=== PATIENT | male | born 1960 | race African-American/Black ===

== ENCOUNTER 2020-03-27 22:04 | Inpatient (IN) | payer OTHER ==
[2020-03-27 23:16] LABS: BASO % 0.9 % (0-2.0); EOS % 0.4 % (0-4.5); HEMATOCRIT 50.3 % (35.4-49); HEMOGLOBIN 17.1 GM/dL (11.7-16.9); LYMPH % 19.3 % (8-40); MCH 29.4 pg (25.7-33.7); MEAN CELL VOLUME 86.5 fl (80-96); MEAN PLT VOLUME 9.5 fl (7.5-11.1); NEUT % 70.4 % (42.8-82.8); PLATELET COUNT 301 K/MM3 (134-434); RBC 5.82 M/mm3 (4.00-5.60); RDW 14.5 % (11.9-15.9); WHITE BLOOD COUNT 10.7 K/mm3 (4.0-10.0)
[2020-03-27 23:18] LABS: VENOUS BASE EXCESS -0.2 mmol/L (-2-2); VENOUS O2 SATURATION 88.8 % (70-80); VENOUS PCO2 36.1 mmHg (38-52); VENOUS PH 7.431 (7.310-7.410)
[2020-03-27 23:27] LABS: INR 1.19 (0.83-1.09); PROTHROMBIN TIME (PATIENT) 14.6 SEC (9.7-13.0)
[2020-03-27 23:29] LABS: ACTIVATED PTT 34.4 SECONDS (25.2-36.5)
[2020-03-27 23:34] LABS: CHLORIDE 100 mmol/L (98-107); POTASSIUM 3.1 mmol/L (3.5-5.1); SODIUM 139 mmol/L (136-145)
[2020-03-27 23:37] LABS: CALCIUM 9.4 mg/dL (8.5-10.1)
[2020-03-27 23:38] LABS: ALBUMIN 3.5 g/dl (3.4-5.0); ANION GAP 15 MMOL/L (8-16); BLOOD UREA NITROGEN 6.5 mg/dL (7-18); CO2 24 mmol/L (21-32); GLUCOSE,RANDOM 128 mg/dL (74-106)
[2020-03-27 23:40] LABS: BILIRUBIN,DIRECT 0.6 mg/dL (0.0-0.2)
[2020-03-27 23:41] LABS: CREATININE 0.7 mg/dL (0.55-1.3); SGOT/AST 79 U/L (15-37); SGPT/ALT 146 U/L (13-61)
[2020-03-27 23:42] LABS: BILIRUBIN,TOTAL 1.7 mg/dL (0.2-1); LDH 233 U/L (87-246)
[2020-03-27 23:43] LABS: ALK PHOS 284 U/L (45-117)
[2020-03-27 23:46] LABS: N-TERMINAL BNP 129.7 pg/ml (5-125)
[2020-03-27] MEDS ORDERED: ADENOSINE 6 MG/2 ML VIAL IVPUSH ONE (23:49)
[2020-03-28] MEDS ORDERED: SODIUM CHLORIDE 500 ML IV STA (00:01)
[2020-03-28] MEDS: KCL 10 MEQ IVPB 10 MEQ/100 ML INFUS.BAG IVPB SCH ×4 (01:01→02:57)
[2020-03-28 01:24] LABS: MAGNESIUM 1.8 mg/dL (1.8-2.4)
[2020-03-28] MEDS ORDERED: VANCOMYCIN 1,000 MG in DEXTROSE 5%-WATER - 250 ML IVPB ONE (02:13)
[2020-03-28] MEDS ORDERED: PIPERACILLIN/TAZOB 4.5 GM 4.5 GM in DEXTROSE 5%-WATER 100 ML IVPB ONE (02:13)
[2020-03-28 02:56] LABS: LIPASE 67 U/L (73-393)
[2020-03-28] MEDS ORDERED: PIPERACILLIN/TAZOB 4.5 GM 4.5 GM/100 ML BAG IVPB ONE (02:56)
[2020-03-28] MEDS ORDERED: VANCOMYCIN 1 GRAM (PRE-DOCKED) 1,000 MG/250 ML BAG IVPB ONE (02:56)
[2020-03-28] MEDS: SODIUM CHLORIDE 1,000 ML IV SCH ×2 (04:25→20:00)
[2020-03-28] MEDS ORDERED: DEXAMETHASONE SOD PHOSPHATE 20 MG/5 ML VIAL IVPB ONE (04:26)
[2020-03-28] MEDS ORDERED: DEXAMETHASONE SOD PHOSPHATE 10 MG/1 ML VIAL ONE (04:29)
[2020-03-28] MEDS: DEXAMETHASONE SOD PHOSPHATE 4 MG/1 ML VIAL IVPB SCH (04:35)
[2020-03-28 06:32] LABS: EPI CELLS 24 /uL (0-25.1); HYALINE CASTS 1 /uL (0-3.1); URINE APPEARANCE Clear; URINE BACTERIA 28 /uL (0-1359); URINE BILIRUBIN Negative (NEGATIVE); URINE COLOR Yellow; URINE GLUCOSE (UA) Negative (NEGATIVE); URINE KETONE 80 (NEGATIVE); URINE LEUK ESTERASE Negative (NEGATIVE); URINE NITRITE Negative (NEGATIVE); URINE PROTEIN Trace (NEGATIVE); URINE RBC 1324 /uL (0-23.9); URINE WBC 22 /uL (0-25.8)
[2020-03-28] MEDS ORDERED: ALBUTEROL SO4 2.5/IPRATROPIUM 0.5 INH SOL 3 ML VIAL.NEB. NEB PRN (10:07)
[2020-03-28] MEDS ORDERED: ALBUTEROL SO4 2.5/IPRATROPIUM 0.5 INH SOL 3 ML VIAL.NEB. NEB ONE (10:46)
[2020-03-28] MEDS ORDERED: ENOXAPARIN NA (PORCINE) 60 MG/0.6 ML DISP.SYRIN SQ ONE (10:47)
[2020-03-28] MEDS: ENOXAPARIN NA (PORCINE) 40 MG/0.4 ML DISP.SYRIN SQ SCH ×2 (10:50→21:34)
[2020-03-28] MEDS ORDERED: ALBUTEROL SO4 HFA INHALER IH PRN (11:11)
[2020-03-28] MEDS ORDERED: ACETAMINOPHEN 325 MG TABLET (FP) PO PRN (12:54)
[2020-03-28] MEDS ORDERED: REMDESIVIR 200 MG in SODIUM CHLORIDE 210 ML IVPB ONE (15:00)
[2020-03-28] MEDS ORDERED: cefTRIAXone SODIUM 1 GM VIAL ONE (16:23)
[2020-03-28] MEDS ORDERED: DEXTROSE 5%-WATER - 50 ML IVPB ONE (16:24)
[2020-03-28] MEDS: CEFTRIAXONE 1 GM in DEXTROSE 5%-WATER - 50 ML IVPB SCH (16:29)
[2020-03-28] MEDS ORDERED: amLODIPine BESYLATE 10 MG TABLET (FP) PO SCH (16:45)
[2020-03-28 17:25] VITALS: BMI 33.8
[2020-03-28] MEDS: ASPIRIN 81 MG CHEWABLE TABLETS PO SCH (17:51)
[2020-03-28] MEDS ORDERED: METOPROLOL TARTRATE 5 MG/5 ML VIAL IVPUSH ONE (18:00)
[2020-03-28] MEDS: LABETALOL HCL 5 MG/1 ML (100MG/20 ML VIAL) IVPUSH SCH ×2 (20:10→21:34)
[2020-03-28] MEDS ORDERED: METOPROLOL TARTRATE 5 MG/5 ML VIAL IVPUSH PRN ×2 (21:24→21:37)
[2020-03-28] MEDS ORDERED: ATORVASTATIN CA 80 MG TABLET (FP) PO SCH (22:00)
[2020-03-28] MEDS ORDERED: EZETIMIBE 10 MG TABLET (FP) PO SCH (22:00)
[2020-03-29] MEDS ORDERED: METOPROLOL TARTRATE 5 MG/5 ML VIAL IVPUSH ONE (05:20)
[2020-03-29] MEDS: DEXAMETHASONE SOD PHOSPHATE 4 MG/1 ML VIAL IVPB SCH ×2 (05:21→09:03)
[2020-03-29 08:03] LABS: HEMATOCRIT 49.6 % (35.4-49); HEMOGLOBIN 17.3 GM/dL (11.7-16.9); MCH 29.9 pg (25.7-33.7); MCHC 34.8 g/dl (32.0-35.9); MEAN PLT VOLUME 9.9 fl (7.5-11.1); PLATELET COUNT 290 K/MM3 (134-434); RBC 5.77 M/mm3 (4.00-5.60); RDW 14.8 % (11.9-15.9); WHITE BLOOD COUNT 17.2 K/mm3 (4.0-10.0)
[2020-03-29 08:40] LABS: POTASSIUM 3.4 mmol/L (3.5-5.1)
[2020-03-29 08:47] LABS: CALCIUM 9.8 mg/dL (8.5-10.1)
[2020-03-29] MEDS ORDERED: DEXTROSE 5%-WATER - 50 ML IVPB ONE (08:47)
[2020-03-29] MEDS ORDERED: cefTRIAXone SODIUM 1 GM VIAL ONE (08:47)
[2020-03-29 08:48] LABS: BLOOD UREA NITROGEN 11.6 mg/dL (7-18)
[2020-03-29 08:51] LABS: CREATININE 0.7 mg/dL (0.55-1.3)
[2020-03-29] MEDS: ENOXAPARIN NA (PORCINE) 40 MG/0.4 ML DISP.SYRIN SQ SCH ×2 (09:02→21:03)
[2020-03-29] MEDS: CEFTRIAXONE 1 GM in DEXTROSE 5%-WATER - 50 ML IVPB SCH (09:02)
[2020-03-29] MEDS: LABETALOL HCL 5 MG/1 ML (100MG/20 ML VIAL) IVPUSH SCH ×2 (09:03→21:04)
[2020-03-29] MEDS: ASPIRIN 81 MG CHEWABLE TABLETS PO SCH (09:04)
[2020-03-29] MEDS: REMDESIVIR 100 MG in SODIUM CHLORIDE 230 ML IVPB SCH (15:04)
[2020-03-29] MEDS ORDERED: DEXTROSE 5%-WATER 100 ML IVPB ONE (18:06)
[2020-03-29] MEDS ORDERED: PIPERACILLIN/TAZOBACTAM 4.5 GM VIAL IVPB ONE (18:06)
[2020-03-29] MEDS: PIPERACILLIN/TAZOB 4.5 GM 4.5 GM in DEXTROSE 5%-WATER 100 ML IVPB SCH (18:10)
[2020-03-29] MEDS: KCL 10 MEQ IVPB 10 MEQ/100 ML INFUS.BAG IVPB SCH ×3 (18:10→21:51)
[2020-03-30] MEDS: SODIUM CHLORIDE 1,000 ML IV SCH
[2020-03-30] MEDS ORDERED: DEXTROSE 5%-WATER 100 ML IVPB ONE ×3 (01:08→17:10)
[2020-03-30] MEDS ORDERED: PIPERACILLIN/TAZOBACTAM 4.5 GM VIAL IVPB ONE ×3 (01:08→17:10)
[2020-03-30] MEDS: ACETAMINOPHEN 1000 MG/100 ML VIAL (NON FORMULARY) IVPB PRN ×3 (01:20→21:38)
[2020-03-30] MEDS: PIPERACILLIN/TAZOB 4.5 GM 4.5 GM in DEXTROSE 5%-WATER 100 ML IVPB SCH ×3 (01:28→18:38)
[2020-03-30] MEDS: INSULIN SLIDING SCALE (NOVOLOG) 1 VIAL SQ SCH ×4 (07:03→21:56)
[2020-03-30 07:43] LABS: BASO % 0.2 % (0-2.0); HEMATOCRIT 49.3 % (35.4-49); HEMOGLOBIN 17.2 GM/dL (11.7-16.9); LYMPH % 5.8 % (8-40); MCH 29.9 pg (25.7-33.7); MCHC 34.9 g/dl (32.0-35.9); MEAN CELL VOLUME 85.7 fl (80-96); MEAN PLT VOLUME 9.6 fl (7.5-11.1); MONO % 5.6 % (3.8-10.2); NEUT % 88.4 % (42.8-82.8); PLATELET COUNT 306 K/MM3 (134-434); RBC 5.75 M/mm3 (4.00-5.60); RDW 15.2 % (11.9-15.9); WHITE BLOOD COUNT 22.4 K/mm3 (4.0-10.0)
[2020-03-30 07:57] LABS: POTASSIUM 3.4 mmol/L (3.5-5.1)
[2020-03-30 07:59] LABS: ALBUMIN 2.7 g/dl (3.4-5.0); CALCIUM 9.4 mg/dL (8.5-10.1)
[2020-03-30 08:00] LABS: BLOOD UREA NITROGEN 20.1 mg/dL (7-18)
[2020-03-30 08:04] LABS: BILIRUBIN,TOTAL 1.1 mg/dL (0.2-1); TOT PROT 6.9 g/dl (6.4-8.2)
[2020-03-30 08:10] LABS: ARTERIAL BLD GAS O2 SATURATION 95.4 mmHg (95-98); ARTERIAL BLOOD GAS PO2 69.1 mmHg (80-100); ARTERIAL BLOOD GAS pH 7.504 (7.350-7.450)
[2020-03-30 08:14] LABS: ALLENS TEST POSITIVE
[2020-03-30] MEDS: LABETALOL HCL 5 MG/1 ML (100MG/20 ML VIAL) IVPUSH SCH ×4 (08:44→22:01)
[2020-03-30] MEDS ORDERED: DEXTROSE 5%-LACTATED RINGERS 1,000 ML IV SCH (09:00)
[2020-03-30] MEDS ORDERED: ASPIRIN 325 MG ENTERIC COATED TABLET (FP) PO SCH (10:00)
[2020-03-30 10:31] LABS: ANISOCYTOSIS 0; HELMET CELLS 0; HOWELL-JOLLY BODIES 0; MACROCYTOSIS 0; OVALOCYTE 0; PLATELET ESTIMATE NORMAL; ROULEAU 0; SICKELED CELLS 0; TARGET CELLS 0; TEAR DROP CELLS 0; TOXIC GRANULATION 0
[2020-03-30] MEDS: ENOXAPARIN NA (PORCINE) 40 MG/0.4 ML DISP.SYRIN SQ SCH ×2 (10:54→21:37)
[2020-03-30] MEDS: DEXAMETHASONE SOD PHOSPHATE 4 MG/1 ML VIAL IVPB SCH (10:54)
[2020-03-30] MEDS ORDERED: METOPROLOL TARTRATE 5 MG/5 ML VIAL IVPUSH PRN (11:19)
[2020-03-30] MEDS ORDERED: ASPIRIN 300 MG SUPP.RECT PR SCH (11:30)
[2020-03-30] MEDS ORDERED: PT OWN MED DRAWER 7, Y5N ONE ×2 (12:12→12:18)
[2020-03-30] MEDS ORDERED: INSULIN (NOVOLOG) ASPART 100 UNITS/ML 10ML VIAL ONE (12:15)
[2020-03-30] MEDS: REMDESIVIR 100 MG in SODIUM CHLORIDE 230 ML IVPB SCH (16:59)
[2020-03-30] MEDS ORDERED: MORPHINE SULFATE 2 MG/ML VIAL IM ONE (21:25)
[2020-03-30] MEDS ORDERED: LACTATED RINGERS SOLUTION 1,000 ML/1,000 ML INFUS.BAG IV STA (23:59)
[2020-03-31 03:36] VITALS: BP 74/52; PULSE 64; TEMP 97
== END 2020-03-31 01:58 | disposition expired | DRG 137 ==
LOC: JER 22:04 → JERBED 03-28 02:15 → J4W 03-28 15:24
PROVIDERS: ADMIT Hospitalist
PROC: XW033E5 Introduction of Remdesivir Anti-infective into Peripheral Vein, Percutaneous Approach, New Technology Group 5 (ICD-10-PCS; principal; 2020-03-28)
DX: U07.1 COVID-19 (principal); I63.9 Cerebral infarction, unspecified; J96.01 Acute respiratory failure with hypoxia; J69.0 Pneumonitis due to inhalation of food and vomit; J12.82 Pneumonia due to coronavirus disease 2019; A41.9 Sepsis, unspecified organism; I47.1 Supraventricular tachycardia; E87.6 Hypokalemia; I25.10 Atherosclerotic heart disease of native coronary artery without angina pectoris; I10 Essential (primary) hypertension; E78.5 Hyperlipidemia, unspecified; J32.9 Chronic sinusitis, unspecified; E66.9 Obesity, unspecified; Z68.33 Body mass index [BMI] 33.0-33.9, adult; I69.322 Dysarthria following cerebral infarction; K76.89 Other specified diseases of liver
CPT/HCPCS: 36415; 36600; 70450-TC; 71275-TC; 74177-TC; 80048; 80053; 80307; 81003; 82248; 82550; 82728; 82803; 82962; 83605; 83615; 83690; 83735; 83880; 84484; 85025; 85027; 85379; 85610; 85730; 86140; 86769; 87040; 87086; 87804; 93005; 93010; 99285-25; C9399; C9803; J0131; U0003